=== PATIENT | male | born 1960 | race American Indian/Alaskan Native ===

== ENCOUNTER 2021-02-11 15:06 | Emergency (ER) | payer OTHER ==
[~2021-02-11] VITALS: Ht 170.2 cm; Wt 80.7 kg
[~2021-02-11 15:06] MED LIST: ACETAMINOPHEN325 M1 PO; ALBUTEROL SULF8.5 GM INH; PEPCID20 MG PO
[2021-02-11] MEDS ORDERED: BAYER CHEWABLE81 MG PO (15:18)
[2021-02-11] MEDS ORDERED: ALLEGRA-D 24 H1 EACH PO (15:19)
[2021-02-11] MEDS ORDERED: CEPHALEXIN500 M1 PO (15:39)
== END 2021-02-11 15:52 | disposition home or self-care (01) ==
LOC: ED 15:06
DX: L03.116 Cellulitis of left lower limb (principal); Z87.891 Personal history of nicotine dependence; Z91.030 Bee allergy status; Z79.899 Other long term (current) drug therapy; Z79.82 Long term (current) use of aspirin
CPT/HCPCS: 99283

== ENCOUNTER 2021-02-22 16:58 | Emergency (ER) | payer OTHER ==
[~2021-02-22] VITALS: Ht 170.2 cm; Wt 88.4 kg
[~2021-02-22 16:58] MED LIST changes: +ALLEGRA-D 24 H1 EACH PO; +BAYER CHEWABLE81 MG PO; +CEPHALEXIN500 M1 PO
--- OUTSIDE RECORDS SUMMARY | 2021-02-22 17:02 | XMS ---
PreManage Notification: MOON FIGUEROA Security Chef Assistant Events No recent Security Events currently on file CRITERIA MET - [facility] [place] - 2 Visits in 30 Days CARE PROVIDERS There are no care providers on record at this time. Raul has no Care Guidelines for this patient. [facility] NOTE: Visits indicate total known visits. ED/C VISIT TRACKING (12 MO.) 02/22/2021 16:59 [facility] [place] TYPE: Emergency COMPLAINT: - LT LEG ISSUE 02/11/2021 15:07 [facility] [place] TYPE: Emergency COMPLAINT: - RASH DIAGNOSES: - rn long term care (current) use of aspirin - Bee allergy status - Cellulitis of left lower limb - Other prison (current) drug therapy - Rash and other nonspecific skin eruption - Personal history of nicotine dependence INPATIENT VISIT TRACKING (12 MO.) No inpatient visits to display in this time frame [id number]
[2021-02-22] MEDS ORDERED: TRIAMCINOLONE A15 G4 TOP (17:30)
== END 2021-02-22 17:44 | disposition home or self-care (01) ==
LOC: ED 16:58
DX: L30.9 Dermatitis, unspecified (principal); Z87.891 Personal history of nicotine dependence; Z91.030 Bee allergy status; Z79.899 Other long term (current) drug therapy; Z79.82 Long term (current) use of aspirin
CPT/HCPCS: 99282

== ENCOUNTER 2021-02-28 13:24 | Emergency (ER) | payer OTHER ==
[~2021-02-28] VITALS: Ht 170.2 cm; Wt 80.7 kg
[~2021-02-28 13:24] MED LIST changes: +TRIAMCINOLONE A15 G4 TOP
--- OUTSIDE RECORDS SUMMARY | 2021-02-28 13:42 | XMS ---
PreManage Notification: MOON FIGUEROA Security Manager Agricultural Events No recent Security Events currently on file CRITERIA MET - [facility] - 2 Visits in 30 Days CARE PROVIDERS [facility] Case Management 02/26/2021-[facility] PHONE: [phone] Raul has no Care Guidelines for this patient. Care History Medical/Surgical 02/26/2021 [facility] - [facility]IENT [facility] EL[facility], \T\middot;\T\nbsp; PLEASE REFER PATIENT TO [facility] FOR NON EMERGENT MEDICAL NEEDS. \T\middot;\T\nbsp; [facility] CAN SEE PATIENTS SAME DAY FOR APTS IF PATIENT CALLS FIRST THING IN THE MORNING. E.D. VISIT COUNT (12 MO.) 3 [facility] TOTAL 3 NOTE: Visits indicate total known visits. ED/UCC VISIT TRACKING (12 MO.) 02/28/2021 13:25 [facility] [place] TYPE: Emergency COMPLAINT: - L LEG SWELLING 02/22/2021 16:59 [facility] [place] TYPE: Emergency COMPLAINT: - LT LEG ISSUE DIAGNOSES: - Personal history of nicotine dependence - Other jail (current) drug therapy - Rash and other nonspecific skin eruption - Bee allergy status - long-term (current) use of aspirin - Dermatitis, unspecified 02/11/2021 15:[address] [facility] [place] TYPE: Emergency COMPLAINT: - RASH DIAGNOSES: - terminal operations manager (current) use of aspirin - Bee allergy status - Cellulitis of left lower limb - Other roasterman (current) drug therapy - Rash and other nonspecific skin eruption - Personal history of nicotine dependence INPATIENT VISIT TRACKING (12 MO.) No inpatient visits to display in this time frame [email or web address]
[2021-02-28] MEDS ORDERED: PREDNISONE20 MG PO (20:28)
== END 2021-02-28 20:46 | disposition home or self-care (01) ==
LOC: ED 13:24
DX: R21 Rash and other nonspecific skin eruption (principal); J45.909 Unspecified asthma, uncomplicated; Z91.030 Bee allergy status; Z79.899 Other long term (current) drug therapy; Z79.82 Long term (current) use of aspirin
CPT/HCPCS: 99282

== ENCOUNTER 2021-06-08 19:55 | Emergency (ER) | payer OTHER ==
[~2021-06-08] VITALS: Ht 170.2 cm; Wt 80.7 kg
[~2021-06-08 19:55] MED LIST changes: +PREDNISONE20 MG PO
== END 2021-06-08 22:17 | disposition home or self-care (01) ==
LOC: ED 19:55
DX: I87.2 Venous insufficiency (chronic) (peripheral) (principal); L50.9 Urticaria, unspecified; J45.909 Unspecified asthma, uncomplicated; Z91.030 Bee allergy status; Z79.899 Other long term (current) drug therapy; Z79.82 Long term (current) use of aspirin
CPT/HCPCS: 99282; Q0163

== ENCOUNTER 2022-01-12 14:19 | Emergency (ER) | payer OTHER ==
[~2022-01-12] VITALS: Ht 170.2 cm; Wt 80.7 kg
[2022-01-12] MEDS ORDERED: VENTOLIN HFA18 GM INH (18:05)
[2022-01-12] MEDS ORDERED: PREDNISONE20 MG PO (18:05)
== END 2022-01-12 18:36 | disposition home or self-care (01) ==
LOC: ED 14:19
DX: J45.901 Unspecified asthma with (acute) exacerbation (principal); Z91.030 Bee allergy status
CPT/HCPCS: 71046; 94640; 94664; 99285-25; J7512

== ENCOUNTER 2022-02-06 09:21 | Emergency (ER) | payer OTHER ==
[~2022-02-06] VITALS: Ht 170.2 cm; Wt 80.7 kg
[~2022-02-06 09:21] MED LIST changes: +VENTOLIN HFA18 GM INH
--- OUTSIDE RECORDS SUMMARY | 2022-02-06 09:30 | XMS ---
PreManage Notification: MOON FIGUEROA Security Cook Soup Events No recent Security Events currently on file CRITERIA MET - [facility] - 2 Visits in 30 Days CARE PROVIDERS [facility] Case Management 02/26/2021-[facility] PHONE: [phone] Raul has no Care Guidelines for this patient. Care History Medical/Surgical 03/01/2021 [facility] - W RECVD CASE MANAGEMENT CONSULT- TO HELP PATIENT FOLLOW UP WITH [facility] PROVIDER - CHW CONTACTED RAILROAD CAR LETTERER DARWIN WHO WORKS WITH [facility] PATIENTS- SHE IS GOING TO NOTIFY PCP DR CRUZ AND HAVE AN APT SCHEDULED FOR CLOSE FOLLOW UP - CHW PROVIDED PATIENT CONTACT NUMBER AND NEW ADDRESS [facility] DID NOT HAVE ON FILE AND WERE UNABLE TO CONTACT PATIENT ON 02/12/21 FOR FOLLOW UP BECAUSE THEY DID NOT HAVE AN ACTIVE CONTACT NUMBER FOR PATIENT. - PATIENT LAST APT WITH PCP WAS 2015 AND IN SEPTEMBER 2020 AN A\T\amp;D SERVICES REFERRAL WAS MADE AT [facility] AND THEY WERE NOT ABLE TO CONTACT PATIENT. - CHW CALLED PATIENT AND LEFT A MESSAGE FOR A RETURN CALL. 02/26/2021 [facility] - PATIENT IS [facility] ELIGIBLE, \T\middot;\T\nbsp; PLEASE REFER PATIENT TO [facility] FOR NON EMERGENT MEDICAL NEEDS. \T\middot;\T\nbsp; [facility] CAN SEE PATIENTS SAME DAY FOR APTS IF PATIENT CALLS FIRST THING IN THE MORNING. E.D. VISIT COUNT (12 MO.) 6 [facility] TOTAL 6 NOTE: Visits indicate total known visits. ED/UCC VISIT TRACKING (12 MO.) 02/06/2022 09:22 [facility] [place] TYPE: Emergency COMPLAINT: - SOB 01/12/2022 14:20 [facility] [place] TYPE: Emergency COMPLAINT: - DIFFICULTY BREATHING DIAGNOSES: - COUGH, UNSPECIFIED - Unspecified asthma with (acute) exacerbation - Bee allergy status 06/08/2021 19:56 [facility] [place] TYPE: Emergency COMPLAINT: - SKIN PROBLEM DIAGNOSES: - Bee allergy status - Rash and other nonspecific skin eruption - [facility] (current) use of aspirin - Venous insufficiency (chronic) (peripheral) - Other salvage determiner (current) drug therapy - Unspecified asthma, uncomplicated - Urticaria, unspecified 02/28/2021 13:25 [facility] [place] TYPE: Emergency COMPLAINT: - L LEG SWELLING DIAGNOSES: - Bee allergy status - [facility] (current) use of aspirin - Other skilled nursing (current) drug therapy - Rash and other nonspecific skin eruption - Unspecified asthma, uncomplicated 02/22/2021 16:59 [facility] [place] TYPE: Emergency COMPLAINT: - LT LEG ISSUE DIAGNOSES: - Personal history of nicotine dependence - Other skilled nursing (current) drug therapy - Rash and other nonspecific skin eruption - Bee allergy status - [facility] (current) use of aspirin - Dermatitis, unspecified 02/11/2021 15:07 [facility] [place] TYPE: Emergency COMPLAINT: - RASH DIAGNOSES: - M[facility] (current) use of aspirin - Bee allergy status - Cellulitis of left lower limb - Other salvage determiner (current) drug therapy - Rash and other nonspecific skin eruption - Personal history of nicotine dependence INPATIENT VISIT TRACKING (12 MO.) No inpatient visits to display in this time frame [id number]
[2022-02-06] MEDS ORDERED: PROVENTIL HFA6.7 GM INH (11:15)
[2022-02-06] MEDS ORDERED: PREDNISONE20 MG PO (11:15)
--- NOTE | 2022-02-06 17:19 | EKG ---
[facility] [address] [place] [address] Signed Normal sinus rhythm Normal ECG No previous ECGs available Confirmed by ISSAC GAN MD ([id number]) on 02/06/2022 5:19:00 PM Electronically Signed By: ISSAC GAN MD 02/06/22 1719 PATIENT NAME: MOON FIGUEROA Electrocardiogram DATE OF : 62 PHYSICIAN: ISSAC GAN MD REPORT #: [id number] REPORT IS CONFIDENTIAL AND NOT TO BE RELEASED WITHOUT AUTHORIZATION
== END 2022-02-06 11:41 | disposition home or self-care (01) ==
LOC: ED 09:21
DX: J45.909 Unspecified asthma, uncomplicated (principal); Z91.030 Bee allergy status
CPT/HCPCS: 36415; 71045; 80053; 82803; 84484; 85025; 93005; 93010; 94640; 96374; 96375; 99285-25; J2060; J2930

== ENCOUNTER 2022-02-25 13:21 | Emergency (ER) | payer OTHER ==
[~2022-02-25] VITALS: Ht 170.2 cm; Wt 80.7 kg
[~2022-02-25 13:21] MED LIST changes: +PROVENTIL HFA6.7 GM INH
--- OUTSIDE RECORDS SUMMARY | 2022-02-25 13:28 | XMS ---
PreManage Notification: MOON FIGUEORA Security Reset Merchandiser Events No recent Security Events currently on file CRITERIA MET - [facility] - 2 Visits in 30 Days CARE PROVIDERS [facility] Case Management 02/26/2021-[facility] PHONE: [phone] Raul has no Care Guidelines for this patient. Care History Medical/Surgical 03/01/2021 [facility] - W RECVD CASE MANAGEMENT CONSULT- TO HELP PATIENT FOLLOW UP WITH [facility] PROVIDER - CHW CONTACTED COMPOSER TEACHING ARTIST DARWIN WHO WORKS WITH [facility] PATIENTS- SHE IS GOING TO NOTIFY PCP DR CRUZ AND HAVE AN APT SCHEDULED FOR CLOSE FOLLOW UP - CHW PROVIDED PATIENT CONTACT NUMBER AND NEW ADDRESS [facility] DID NOT HAVE ON FILE AND WERE UNABLE TO CONTACT PATIENT ON 02/12/21 FOR FOLLOW UP BECAUSE THEY DID NOT HAVE AN ACTIVE CONTACT NUMBER FOR PATIENT. - PATIENT LAST APT WITH PCP WAS 2015 AND IN SEPTEMBER 2020 AN A\T\amp;D SERVICES REFERRAL WAS MADE AT [facility] AND THEY WERE NOT ABLE TO CONTACT PATIENT. - CHW CALLED PATIENT AND LEFT A MESSAGE FOR A RETURN CALL. 02/26/2021 [facility] - PATIENT IS [facility] ELIGIBLE, \T\middot;\T\nbsp; PLEASE REFER PATIENT TO [facility] FOR NON EMERGENT MEDICAL NEEDS. \T\middot;\T\nbsp; [facility] CAN SEE PATIENTS SAME DAY FOR APTS IF PATIENT CALLS FIRST THING IN THE MORNING. E.D. VISIT COUNT (12 MO.) 5 [facility] TOTAL 5 NOTE: Visits indicate total known visits. ED/UCC VISIT TRACKING (12 MO.) 02/25/2022 13:23 [facility] [place] TYPE: Emergency COMPLAINT: - DIFFICULTY BREATHING 02/06/2022 09:22 [facility] [place] TYPE: Emergency COMPLAINT: - SOB DIAGNOSES: - Shortness of breath - Bee allergy status - Unspecified asthma, uncomplicated 01/12/2022 14:20 [facility] [place] [facility] [place] TYPE: Emergency COMPLAINT: - DIFFICULTY BREATHING DIAGNOSES: - COUGH, UNSPECIFIED - Cough, unspecified - Unspecified asthma with (acute) exacerbation - Bee allergy status 06/08/2021 19:[address] [facility] [address] [facility] [place] TYPE: Emergency COMPLAINT: - SKIN PROBLEM DIAGNOSES: - Bee allergy status - Rash and other nonspecific skin eruption - concentrator operator (current) use of aspirin - Venous insufficiency (chronic) (peripheral) - Other chcf (current) drug therapy - Unspecified asthma, uncomplicated - Urticaria, unspecified 02/28/2021 13:[address] [facility] [address] [facility] [place] TYPE: Emergency COMPLAINT: - L LEG SWELLING DIAGNOSES: - Bee allergy status - concentrator operator (current) use of aspirin - Other chcf (current) drug therapy - Rash and other nonspecific skin eruption - Unspecified asthma, uncomplicated INPATIENT VISIT TRACKING (12 MO.) No inpatient visits to display in this time frame [id number]
[2022-02-25] MEDS ORDERED: VENTOLIN HFA18 GM INH (15:15)
[2022-02-25] MEDS ORDERED: PREDNISONE20 MG PO (15:15)
== END 2022-02-25 15:52 | disposition home or self-care (01) ==
LOC: ED 13:21
DX: J45.901 Unspecified asthma with (acute) exacerbation (principal); Z91.030 Bee allergy status
CPT/HCPCS: 71046; 94640; 99284-25; A9270; J7512

== ENCOUNTER 2022-07-22 08:47 | Emergency (ER) | payer OTHER ==
[~2022-07-22] VITALS: Ht 170.2 cm; Wt 80.7 kg
[2022-07-22] MEDS ORDERED: PREDNISONE20 MG PO (12:51)
[2022-07-22] MEDS ORDERED: PROAIR HFA8.5 GM INH (12:53)
== END 2022-07-22 14:09 | disposition home or self-care (01) ==
LOC: ED 08:47
DX: J45.901 Unspecified asthma with (acute) exacerbation (principal); R91.1 Solitary pulmonary nodule; Z91.038 Other insect allergy status; Z79.899 Other long term (current) drug therapy; Z79.52 Long term (current) use of systemic steroids; Z20.822 Contact with and (suspected) exposure to COVID-19
CPT/HCPCS: 36415; 71045; 80053; 85025; 87502; 94640; 94660; 94664; 96374; 99285-25; C9803; J2930; U0003

== ENCOUNTER 2022-09-06 02:33 | Emergency (ER) | payer OTHER ==
[~2022-09-06] VITALS: Ht 170.2 cm; Wt 80.7 kg
[~2022-09-06 02:33] MED LIST changes: +PROAIR HFA8.5 GM INH
--- NOTE | 2022-09-08 20:48 | EKG ---
[facility] [address] [place] [address] Signed Normal sinus rhythm Normal ECG When compared with ECG of 06-FEB-2022 09:30, Questionable change in QRS axis Confirmed by Rex Guerrier MD () on 09/08/2022 8:48:05 PM Electronically Signed By: REX GUERRIER MD 09/08/222047 PATIENT NAME: MOON FIGUEROA Electrocardiogram DATE OF : 62 PHYSICIAN: REX GUERRIER MD REPORT #: [id number] REPORT IS CONFIDENTIAL AND NOT TO BE RELEASED WITHOUT AUTHORIZATION
== END 2022-09-06 05:04 | disposition home or self-care (01) ==
LOC: ED 02:33
DX: J44.1 Chronic obstructive pulmonary disease with (acute) exacerbation (principal); F12.10 Cannabis abuse, uncomplicated; Z59.00 Homelessness unspecified; Z91.030 Bee allergy status
CPT/HCPCS: 36415; 71045; 80053; 81001; 83735; 84484; 85025; 93005; 93010; 96374; 99285-25; J2930

== ENCOUNTER 2022-09-10 11:00 | Emergency (ER) | payer OTHER ==
[~2022-09-10] VITALS: Ht 170.2 cm; Wt 80.7 kg
--- OUTSIDE RECORDS SUMMARY | 2022-09-10 11:06 | XMS ---
PreManage Notification: MOON FIGUEROA Security Denture Technician Events No recent Security Events currently on file CRITERIA MET - [facility] - 2 Visits in 30 Days CARE PROVIDERS [facility] Case Management 02/26/2021-[facility] PHONE: [phone] Raul has no Care Guidelines for this patient. Care History Medical/Surgical 03/01/2021 [facility] - W RECVD CASE MANAGEMENT CONSULT- TO HELP PATIENT FOLLOW UP WITH [facility] PROVIDER - CHW CONTACTED CRYPTOGRAPHIC MACHINE OPERATOR DARWIN WHO WORKS WITH [facility] PATIENTS- SHE IS GOING TO NOTIFY PCP DR CRUZ AND HAVE AN APT SCHEDULED FOR CLOSE FOLLOW UP - CHW PROVIDED PATIENT CONTACT NUMBER AND NEW ADDRESS [facility] DID NOT HAVE ON FILE AND WERE UNABLE TO CONTACT PATIENT ON 02/12/21 FOR FOLLOW UP BECAUSE THEY DID NOT HAVE AN ACTIVE CONTACT NUMBER FOR PATIENT. - PATIENT LAST APT WITH PCP WAS 2015 AND IN SEPTEMBER 2020 AN A\T\amp;D SERVICES REFERRAL WAS MADE AT [facility] AND THEY WERE NOT ABLE TO CONTACT PATIENT. - CHW CALLED PATIENT AND LEFT A MESSAGE FOR A RETURN CALL. 02/26/2021 [facility] - PATIENT IS [facility] ELIGIBLE, \T\middot;\T\nbsp; PLEASE REFER PATIENT TO [facility] FOR NON EMERGENT MEDICAL NEEDS. \T\middot;\T\nbsp; [facility] CAN SEE PATIENTS SAME DAY FOR APTS IF PATIENT CALLS FIRST THING IN THE MORNING. E.D. VISIT COUNT (12 MO.) [address] [facility] [place] TOTAL 6 NOTE: Visits indicate total known visits. ED/UCC VISIT TRACKING (12 MO.) 09/10/2022 11:00 [facility] [place] TYPE: Emergency COMPLAINT: - DIFFICULTY BREATHING 09/06/2022 02:34 [facility] [place] TYPE: Emergency COMPLAINT: - SOB 07/22/2022 08:[address] [facility] [place] TYPE: Emergency COMPLAINT: - DIFFICULTY BREATHING DIAGNOSES: - Shortness of breath - Other detention (current) drug therapy - Other insect allergy status - Unspecified asthma with (acute) exacerbation - vermin exterminator (current) use of systemic steroids - Contact with and (suspected) exposure to COVID-19 - Solitary pulmonary nodule 02/25/2022 13:[address] [facility] [place] [place] TYPE: Emergency COMPLAINT: - DIFFICULTY BREATHING DIAGNOSES: - Bee allergy status - Shortness of breath - Unspecified asthma with (acute) exacerbation 02/06/2022 09:[address] [facility] [place] TYPE: Emergency COMPLAINT: - SOB DIAGNOSES: - Bee allergy status - Unspecified asthma, uncomplicated - Shortness of breath 01/12/2022 14:20 [facility] [place] TYPE: Emergency COMPLAINT: - DIFFICULTY BREATHING DIAGNOSES: - Bee allergy status - Cough, unspecified - Unspecified asthma with (acute) exacerbation - COUGH, UNSPECIFIED INPATIENT VISIT TRACKING (12 MO.) No inpatient visits to display in this time frame [email or web address]
[2022-09-10] MEDS ORDERED: PREDNISONE20 MG PO (12:28)
[2022-09-10] MEDS ORDERED: ALBUTEROL2.5 MG/3 M INH (12:28)
--- NOTE | 2022-09-10 20:37 | EKG ---
[facility] [address] [place] [address] Signed Normal sinus rhythm Right atrial enlargement Borderline ECG No previous ECGs available Confirmed by GIANCARLO OTERO MD ([id number]) on 09/10/2022 8:37:38 PM Electronically Signed By: GIANCARLO OTERO MD 09/10/222036 PATIENT NAME: HENRYMOON AVANI Electrocardiogram DATE OF : 62 PHYSICIAN: GIANCARLO OTERO MD REPORT #: [id number] REPORT IS CONFIDENTIAL AND NOT TO BE RELEASED WITHOUT AUTHORIZATION
== END 2022-09-10 14:07 | disposition home or self-care (01) ==
LOC: ED 11:00
DX: J44.1 Chronic obstructive pulmonary disease with (acute) exacerbation (principal); Z91.030 Bee allergy status; Z79.52 Long term (current) use of systemic steroids
CPT/HCPCS: 36415; 71045; 80053; 83735; 84484; 85025; 93005; 93010; 94640; A9270; C9803; J2930

== ENCOUNTER 2022-10-23 02:58 | Emergency (ER) | payer OTHER ==
[~2022-10-23] VITALS: Ht 170.2 cm; Wt 80.7 kg
[~2022-10-23 02:58] MED LIST changes: +ALBUTEROL2.5 MG/3 M INH
== END 2022-10-23 04:30 | disposition home or self-care (01) ==
LOC: ED 02:58
DX: J10.1 Influenza due to other identified influenza virus with other respiratory manifestations (principal); J44.1 Chronic obstructive pulmonary disease with (acute) exacerbation; Z91.030 Bee allergy status; Z79.899 Other long term (current) drug therapy; Z20.822 Contact with and (suspected) exposure to COVID-19
CPT/HCPCS: 71045; 87502; 96374; 99285-25; J2930; U0003

== ENCOUNTER 2023-02-08 23:32 | Emergency (ER) | payer OTHER ==
[~2023-02-08] VITALS: Ht 170.2 cm; Wt 82.1 kg
== END 2023-02-09 01:09 | disposition home or self-care (01) ==
LOC: ED 23:32
DX: J44.1 Chronic obstructive pulmonary disease with (acute) exacerbation (principal); Z91.030 Bee allergy status; Z79.899 Other long term (current) drug therapy; Z20.822 Contact with and (suspected) exposure to COVID-19
CPT/HCPCS: 36415; 71045; 80053; 81003; 83880; 84484; 85025; 87502; 94640; 96374; 99285-25; C9803; J2930; U0003

== ENCOUNTER 2023-06-27 11:37 | Observation (INO) | payer OTHER | END 2023-06-28 14:00 | disposition home or self-care (01) | LOC: ED 11:37 → MS 11:38 | PROVIDERS: ADMIT Internal Medicine | DX: J44.1 Chronic obstructive pulmonary disease with (acute) exacerbation (principal); I10 Essential (primary) hypertension ==

== ENCOUNTER 2025-02-25 13:09 | Emergency (ER) | payer OTHER ==
[~2025-02-25] VITALS: Ht 170.2 cm; Wt 93.5 kg
[~2025-02-25 13:09] MED LIST changes: +AZITHROMYCIN500 MG PO; +MUCINEX600 MG PO; +PREDNISONE10 MG PO
[2025-02-25] MEDS ORDERED: ALBUTEROL/IPRATROPIUM 3 ML NEB INH ONE (13:30)
[2025-02-25 13:53] LABS: EOSINOPHILS 8.2 % (0-6); HEMATOCRIT 42.9 % (35.0-50.0); HEMOGLOBIN 14.7 g/dL (12.0-18.0); LYMPHOCYTES 27.9 % (24-44); MCH 28.7 (27-36); MCHC 34.3 g/dl (30-36); MCV 83.7 fl (81-99); MONOCYTES 8.1 % (0-12); NEUTROPHILS 54.8 % (39-80); PLATELET COUNT 316 K/uL (140-440); RBC 5.13 M/ul (4.3-5.7); RDW 14.6 (10.5-15.0)
[2025-02-25] MEDS ORDERED: ALBUTEROL SULFATE 0.5% 2.5 MG/0.5 ML VIAL INH ONE (14:00)
[2025-02-25] MEDS ORDERED: methylPREDNISolone SOD SUCC 125 MG/2 ML VIAL IV ONE (14:00)
[2025-02-25 14:07] LABS: CORONAVIRUS COVID-19 AG NEGATIVE (NEGATIVE); INFLUENZA A AG NEGATIVE (NEGATIVE); INFLUENZA B AG NEGATIVE (NEGATIVE)
[2025-02-25 14:17] LABS: ALBUMIN 3.2 g/dL (3.4-5.0); ALBUMIN/GLOBULIN RATIO 0.86 (1.1-2.4); ANION GAP 12.6 (7-21); BILIRUBIN, TOTAL 0.4 mg/dL (0.2-1.0); BUN/CREATININE RATIO 11.11 (6.0-28.6); CALCIUM 8.4 mg/dL (8.5-10.1); CREATININE, SERUM 0.99 mg/dL (0.70-1.30); MAGNESIUM 2.4 mg/dL (1.8-2.4); POTASSIUM 3.6 mmol/L (3.5-5.1); PROTEIN, TOTAL 6.9 g/dL (6.4-8.2)
[2025-02-25] MEDS ORDERED: PREDNISONE20 MG PO (16:41)
[2025-02-25 16:46] VITALS: BP 156/78
--- NOTE | 2025-02-26 14:45 | EKG ---
[facility] [address] [place] [address] Signed Normal sinus rhythm Normal ECG When compared with ECG of 27-JUN-2023 11:45, Vent. rate has decreased BY 41 BPM Questionable change in QRS axis Confirmed by Rex Guerrier MD () on 02/26/2025 2:45:47 PM Electronically Signed By: REX GUERRIER MD 02/26/25 1445 PATIENT NAME: MOON FIGUEROA Electrocardiogram DATE OF : 62 PHYSICIAN: REX GUERRIER MD REPORT #: [id number] REPORT IS CONFIDENTIAL AND NOT TO BE RELEASED WITHOUT AUTHORIZATION
== END 2025-02-25 16:46 | disposition home or self-care (01) ==
LOC: ED 13:09
PROVIDERS: Emergency Medicine
DX: J44.1 Chronic obstructive pulmonary disease with (acute) exacerbation (principal); I10 Essential (primary) hypertension; Z91.030 Bee allergy status
CPT/HCPCS: 36415; 71045; 80053; 83735; 84484; 85025; 93005; 93010; 94640; 96374; 99285-25; J2919

== ENCOUNTER 2025-03-12 22:28 | Emergency (ER) | payer OTHER ==
[~2025-03-12] VITALS: Ht 170.2 cm; Wt 89.6 kg
[2025-03-12] MEDS ORDERED: BUDESONIDE 0.5 MG/2 ML VIAL INH ONE (22:45)
[2025-03-12] MEDS ORDERED: ALBUTEROL SULFATE 0.5% 2.5 MG/0.5 ML VIAL INH ONE (22:45)
[2025-03-12] MEDS ORDERED: ALBUTEROL/IPRATROPIUM 3 ML NEB INH ONE (22:45)
[2025-03-13] MEDS ORDERED: INHALER, ASSIST DEVICES 1 EACH SPACER MISC ONE (01:30)
[2025-03-13] MEDS ORDERED: methylPREDNISolone 4 MG HOME.PACK PO ONE (01:30)
[2025-03-13] MEDS ORDERED: ALBUTEROL SULFATE 8 GM HOME.PACK INH ONE (01:30)
[2025-03-13] MEDS ORDERED: AZITHROMYCIN 250 MG HOME.PACK PO ONE (01:30)
[2025-03-13 02:03] VITALS: BP 145/56
== END 2025-03-13 02:07 | disposition home or self-care (01) ==
LOC: ED 22:28
DX: J44.89 Other specified chronic obstructive pulmonary disease (principal); Z91.038 Other insect allergy status
CPT/HCPCS: 71045; 94640; 94644; 94664; 99285-25; U0002